=== PATIENT | male | born 1975 | race American Indian/Alaskan Native ===

== ENCOUNTER 2017-07-03 15:54 | Emergency (ER) | payer MEDICAID ==
[2017-07-03] MEDS ORDERED: TYLENOL PO ONE (19:56)
[2017-07-03] MEDS ORDERED: NORVASC PO ONE (20:09)
--- NOTE | 2017-07-03 20:18 | Emergency Department Report ---
- General Chief Complaint: Upper Respiratory Infection Stated Complaint: HEADACHE Time Seen by Provider: 07/03/17 20:08 Source: patient Mode of arrival: Ambulatory Limitations: No Limitations - History of Present Illness Initial Comments: 42-year-old male past medical history hypertension presents with complaint of nasal congestion sore throat intermittent headache and body aches for approximately 3-4 days. Patient awake alert and oriented 3 not in acute distress fully lucid nontoxic-appearing. Primarily complaining of sore throat and generalized malaise. Denies substernal chest pain palpitations or significant shortness of breath. Does state he has had cough. Unsure if he has had sick contacts. Patient ambulatory without assistance. Denies being a smoker. Patient is out of blood pressure medicines. MD Complaint: fever, cough, sore throat, rhinorrhea, nasal congestion, sinus pain Onset/Timin -: days(s) Severity: mild Associated Symptoms: myalgias, headache, rhinorrhea, nasal congestion, sore throat, cough - Related Data Previous Rx's Medication Instructions Recorded Last Taken Type Benzonatate [Tessalon Perles] 100 mg PO Q8HR PRN #30 capsule 06/02/17 Unknown Rx Ibuprofen [Motrin] 800 mg PO Q8HR PRN #30 tablet 06/02/17 Unknown Rx Ondansetron [Zofran Odt] 4 mg PO Q8HR PRN #14 tab.rapdis 06/02/17 Unknown Rx Sodium Chloride [Saline Nasal 1 - 2 sprays NS PRN PRN #1 bottle 06/02/17 Unknown Rx [place]] amLODIPine [Norvasc] 5 mg PO DAILY #30 tab 06/02/17 Unknown Rx traMADol [Ultram 50 MG tab] 50 mg PO Q6HR PRN #20 tablet 06/02/17 Unknown Rx Amoxicillin/Potassium Clav 1 each PO BID #14 tablet 07/04/17 Unknown Rx [Augmentin 875-125 Tablet] Dextromethorphan/Benzocaine 1 each PO Q4H PRN #1 box 07/04/17 Unknown Rx [Cepacol Sorethroat-Cough Ellen] Phenylephrine/Dm/Acetaminop/GG 10 ml PO Q6H PRN #1 liquid 07/04/17 Unknown Rx [Mucinex Fidx-Nvz-Ogqhtswbqt Lq] amLODIPine [Norvasc] 5 mg PO DAILY #30 tab 07/04/17 Unknown Rx methylPREDNISolone [Medrol Dose 4 mg PO QDAY #1 tab.ds.pk 07/04/17 Unknown Rx [place]] Allergies Allergy/AdvReac Type Severity Reaction Status Date / Time No Known Allergies Allergy Unverified 06/02/17 17:58 ED Review of Systems ROS: Stated complaint: HEADACHE Other details as noted in HPI Constitutional: malaise. denies: chills, fever Eyes: denies: eye pain, eye discharge, vision change ENT: throat pain. denies: ear pain Respiratory: cough. denies: shortness of breath, wheezing Cardiovascular: denies: chest pain, palpitations Endocrine: no symptoms reported Gastrointestinal: denies: abdominal pain, nausea, diarrhea Genitourinary: denies: urgency, dysuria Musculoskeletal: denies: back pain, joint swelling, arthralgia Skin: denies: rash, lesions Neurological: denies: headache, weakness, paresthesias Psychiatric: denies: anxiety, depression Hematological/Lymphatic: denies: easy bleeding, easy bruising ED Past Medical Hx - Past Medical History Previous Medical History?: Yes Hx Hypertension: Yes - Surgical History Past Surgical History?: No - Social History Smoking Status: Never Smoker Substance Use Type: Prescribed - Medications Home Medications: Home Medications Medication Instructions Recorded Confirmed Last Taken Type Benzonatate [Tessalon Perles] 100 mg PO Q8HR PRN #30 capsule 06/02/17 Unknown Rx Ibuprofen [Motrin] 800 mg PO Q8HR PRN #30 tablet 06/02/17 Unknown Rx Ondansetron [Zofran Odt] 4 mg PO Q8HR PRN #14 tab.rapdis 06/02/17 Unknown Rx Sodium Chloride [Saline Nasal 1 - 2 sprays NS PRN PRN #1 bottle 06/02/17 Unknown Rx [place]] amLODIPine [Norvasc] 5 mg PO DAILY #30 tab 06/02/17 Unknown Rx traMADol [Ultram 50 MG tab] 50 mg PO Q6HR PRN #20 tablet 06/02/17 Unknown Rx Amoxicillin/Potassium Clav 1 each PO BID #14 tablet 07/04/17 Unknown Rx [Augmentin 875-125 Tablet] Dextromethorphan/Benzocaine 1 each PO Q4H PRN #1 box 07/04/17 Unknown Rx [Cepacol Sorethroat-Cough Ellen] Phenylephrine/Dm/Acetaminop/GG 10 ml PO Q6H PRN #1 liquid 07/04/17 Unknown Rx [Mucinex Ichm-Mfp-Wdbuwcfxhv Lq] amLODIPine [Norvasc] 5 mg PO DAILY #30 tab 07/04/17 Unknown Rx methylPREDNISolone [Medrol Dose 4 mg PO QDAY #1 tab.ds.pk 07/04/17 Unknown Rx [place]] ED Physical Exam - General Limitations: No Limitations General appearance: alert, in no apparent distress - Head Head exam: Present: atraumatic, normocephalic - Eye Eye exam: Present: normal appearance, PERRL, EOMI - ENT ENT exam: Present: mucous membranes moist - Expanded ENT Exam Expanded Throat exam: Positive: other (some uvular erythema and exudates no STEREOTYPE CASTER uvula is midline oropharynx is patent.) - Neck Neck exam: Present: normal inspection, full ROM - Respiratory Respiratory exam: Present: normal lung sounds bilaterally (lungs clear to auscultation bilaterally). Absent: respiratory distress - Cardiovascular Cardiovascular Exam: Present: regular rate, normal rhythm. Absent: systolic murmur, diastolic murmur, rubs, gallop - GI/Abdominal GI/Abdominal exam: Present: soft (abdomen soft nontender nondistended no right or left flank tenderness on percussion), normal bowel sounds - Rectal Rectal exam: Present: deferred - Extremities Exam Extremities exam: Present: normal inspection - Back Exam Back exam: Present: normal inspection - Neurological Exam Neurological exam: Present: alert, oriented X3 - Psychiatric Psychiatric exam: Present: normal affect, normal mood - Skin Skin exam: Present: warm, dry, intact, normal color. Absent: rash ED Course Vital Signs 07/03/17 16:03 Temperature 98.6 F Pulse Rate 75 Respiratory 18 Rate Blood Pressure 157/109 O2 Sat by Pulse 98 Oximetry ED Medical Decision Making - Lab Data Result diagrams: 07/03/17 22:18 07/03/17 22:18 - Medical Decision Making A/P: Viral syndrome, uvulitis, URI, prescription refill 1-strep and flu swab is negative, chest x-ray negative. CBC unremarkable. BMP unremarkable only slightly elevated CK minimal. 2-throat lozenges when necessary, Mucinex when necessary, Medrol Dosepak, course of Augmentin [email or web address] 3-no audible wheezing or stridor. Patient tolerating by mouth food and fluid without difficulty. No trismus noted drooling no stridor on clinical exam. No clinical features of epiglottitis on clinical exam 4- case discussed with ED attending also examined the patient 5- I advised patient to remain well-hydrated and follow-up with his primary care doctor. Patient states he lives in [place] and will do so when he arrives there later this week. Speaking in full sentences without difficulty. Will give patient refill on amlodipine and I advised him to follow up with primary care doctor for management of chronic chronic hypertension Critical care attestation.: If time is entered above; I have spent that time in minutes in the direct care of this critically ill patient, excluding procedure time. ED Disposition Clinical Impression: Viral syndrome, Uvulitis Upper respiratory infection Qualifiers: URI type: unspecified URI Qualified Code(s): J06.9 - Acute upper respiratory infection, unspecified Disposition: DC- TO HOME OR SELFCARE Is pt being admited?: No Does the pt Need Aspirin: No Condition: Stable Instructions: Uvulitis (ED), Benzocaine/Menthol (By mouth), Viral Syndrome (ED) , Upper Respiratory Infection (ED) Prescriptions: amLODIPine [Norvasc] 5 mg PO DAILY #30 tab Amoxicillin/Potassium Clav [Augmentin 875-125 Tablet] 1 each PO BID #14 tablet Dextromethorphan/Benzocaine [Cepacol Sorethroat-Cough Ellen] 1 each PO Q4H PRN #1 box PRN Reason: Sore Throat methylPREDNISolone [Medrol Dose Pasha] 4 mg PO QDAY #1 tab.ds.pk Phenylephrine/Dm/Acetaminop/GG [Mucinex Pzpp-Yxw-Qbzchihdcc Lq] 10 ml PO Q6H PRN #1 liquid PRN Reason: Cough Referrals: [facility] [Outside] - 3-5 Days [facility] [Outside] - 3-5 Days Forms: Work/School Release Form(ED) Time of Disposition: 00:12
[2017-07-03] MEDS ORDERED: MOTRIN PO ONE (20:51)
[2017-07-03] MEDS ORDERED: DELTASONE PO ONE (20:53)
--- NOTE | 2017-07-03 21:37 | XRay Report ---
FINAL REPORT PROCEDURE: XR CHEST ROUTINE 2V TECHNIQUE: PA and lateral chest radiographs were obtained. CPT 95431 HISTORY: cough worsening COMPARISON: 06/02/2017 FINDINGS: Heart: Normal. Mediastinum/Vessels: Normal. Lungs/Pleural space: Normal. Bony thorax: No acute osseous abnormality. Other: IMPRESSION: Normal examination.
[2017-07-03 22:41] LABS: Basophils % (Auto) 0.6 % (0.0-1.8); Eosinophils % (Auto) 1.8 % (0.0-4.3); Hematocrit 41.4 % (35.5-45.6); Hemoglobin 13.7 gm/dl (11.8-15.2); Mean Corpuscular HGB Conc 33 % (32-34); Mean Corpuscular Hemoglobin 29 pg (28-32); Mean Corpuscular Volume 89 fl (84-94); Platelet Count 172 K/mm3 (140-440); Red Blood Count 4.67 M/mm3 (3.65-5.03); White Blood Count 6.7 K/mm3 (4.5-11.0)
[2017-07-03 23:06] LABS: Anion Gap 18 mmol/L; BUN/Creatinine Ratio 17; Blood Urea Nitrogen 10 mg/dL (9-20); Calcium 9.4 mg/dL (8.4-10.2); Carbon Dioxide 27 mmol/L (22-30); Creatine Kinase 272 units/L (55-170); Glucose 104 mg/dL (75-100); Sodium 140 mmol/L (137-145)
[2017-07-04 01:22] VITALS: BP 149/99
== END 2017-07-04 00:20 | disposition home or self-care (01) ==
LOC: ED 15:54
DX: K12.2 Cellulitis and abscess of mouth (principal); J06.9 Acute upper respiratory infection, unspecified; B34.9 Viral infection, unspecified; I10 Essential (primary) hypertension
CPT/HCPCS: 36415; 71020; 80048; 82550; 85025; 87116; 87400; 87430; 87491; 99284; J7512

== ENCOUNTER 2017-08-05 16:47 | Emergency (ER) | payer MEDICAID ==
[2017-08-05 17:40] VITALS: BP 127/85
--- NOTE | 2017-08-06 03:56 | Emergency Department Report ---
Minor Respiratory - HPI Chief Complaint: Upper Respiratory Infection Stated Complaint: FLU SYMPTOMS Time Seen by Provider: 08/06/17 02:48 Duration: 1 Day Severity: mild Minor Respiratory: Yes Rhinorrhea, Yes Able to Tolerate Fluids, Yes Cough, Yes Sick Contacts (seo manager at work), Yes Fever (fever at home, normal temp in ER), No Sore Throat, No Ear Pain, No Hemoptysis, No Chest Pain, No Shortness of Breath Other History: This is a 42 y.o. male presents with cough, fever, chills, body aches, nausea, and diarrhea for 1 day. 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 He woke up yesterday with symptoms of the flu and couldn't go into work. Taking OTC cold and flu medication with minimal improvement. ED Review of Systems ROS: Stated complaint: FLU SYMPTOMS Other details as noted in HPI Constitutional: see HPI, chills, fever. denies: diaphoresis, malaise, weakness Eyes: denies: eye pain, eye discharge, vision change ENT: congestion. denies: ear pain, throat pain, dental pain, hearing loss, epistaxis Respiratory: see HPI, cough. denies: orthopnea, shortness of breath, SOB with exertion, SOB at rest, stridor, wheezing Cardiovascular: denies: chest pain, palpitations Gastrointestinal: denies: abdominal pain, nausea, diarrhea Neurological: denies: headache, weakness, paresthesias ED Past Medical Hx - Past Medical History Hx Hypertension: Yes - Surgical History Past Surgical History?: No - Social History Smoking Status: Never Smoker Substance Use Type: None - Medications Home Medications: Home Medications Medication Instructions Recorded Confirmed Last Taken Type Benzonatate [Tessalon Perles] 100 mg PO Q8HR PRN #30 capsule 06/02/17 Unknown Rx Ibuprofen [Motrin] 800 mg PO Q8HR PRN #30 tablet 06/02/17 Unknown Rx Ondansetron [Zofran Odt] 4 mg PO Q8HR PRN #14 tab.rapdis 06/02/17 Unknown Rx Sodium Chloride [Saline Nasal 1 - 2 sprays NS PRN PRN #1 bottle 06/02/17 Unknown Rx [place]] amLODIPine [Norvasc] 5 mg PO DAILY #30 tab 06/02/17 Unknown Rx traMADol [Ultram 50 MG tab] 50 mg PO Q6HR PRN #20 tablet 06/02/17 Unknown Rx Amoxicillin/Potassium Clav 1 each PO BID #14 tablet 07/04/17 Unknown Rx [Augmentin 875-125 Tablet] Dextromethorphan/Benzocaine 1 each PO Q4H PRN #1 box 07/04/17 Unknown Rx [Cepacol Sorethroat-Cough Ellen] Phenylephrine/Dm/Acetaminop/GG 10 ml PO Q6H PRN #1 liquid 07/04/17 Unknown Rx [Mucinex Sqfn-Bfw-Maequchghp Lq] amLODIPine [Norvasc] 5 mg PO DAILY #30 tab 07/04/17 Unknown Rx methylPREDNISolone [Medrol Dose 4 mg PO QDAY #1 tab.ds.pk 07/04/17 Unknown Rx [place]] Benzonatate 200 mg PO TID PRN #30 capsule 08/06/17 Unknown Rx Fluticasone [Flonase] 1 spray NS QDAY #1 bottle 08/06/17 Unknown Rx Ondansetron [Zofran TAB] 4 mg PO Q8HR PRN #15 tablet 08/06/17 Unknown Rx Oseltamivir [Tamiflu] 75 mg PO BID 5 Days #10 cap 08/06/17 Unknown Rx Minor Respiratory Exam - Exam General: Vital signs noted. No distress. Alert and acting appropriately. HEENT: Yes Pharyngeal Erythema, Yes Moist Mucous Membranes, Yes Rhinorrhea ( clear discharge, turbinates swollen and red), No Pharyngeal Exudates, No Conjuctival Injection, No Frontal Tenderness, No Maxillary Tenderness Ear: Neither TM Bulge, Neither TM Erythema, Neither EAC Pain, Neither EAC Discharge Neck: Yes Supple, No Adenopathy Lungs: Yes Good Air Exchange, Yes Cough, No Wheezes, No Ronchi, No Stridor, No Labored Respirations, No Retractions, No Use of Accessory Muscles, No Other Abnormal Lung Sounds Heart: Yes Regular, No Murmur Abdomen: Yes Normal Bowel Sounds, No Tenderness, No Peritoneal Signs Skin: No Rash, No Edema Neurologic: Alert and oriented, no deficits. Musculoskeletal: Unremarkable. ED Course Vital Signs 08/05/17 17:36 Temperature 98.5 F Pulse Rate 66 Respiratory 16 Rate Blood Pressure 127/85 O2 Sat by Pulse 97 Oximetry ED Medical Decision Making - Medical Decision Making This is a 42 y.o. female presents with congestion, cough, body aches, fever, chills, nausea, and diarrhea for 1 day. 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 States she was coughing over him all day. When he woke up the next day he could barely get out of bed and temperature was 101.3. He started taking OTC cold and flu medication with minimal relief. Rapid influenza, negative Physical assessment cc Viral Syndrome, started on tamiflu, benzonate for cough, flonase for congestion , and zofran for nausea. Follow up with PCP. Critical care attestation.: If time is entered above; I have spent that time in minutes in the direct care of this critically ill patient, excluding procedure time. ED Disposition Clinical Impression: Viral syndrome URI (upper respiratory infection) Qualifiers: URI type: acute nasopharyngitis (common cold) Qualified Code(s): J00 - Acute nasopharyngitis [common cold] Disposition: TO HOME OR SELFCARE Is pt being admited?: No Does the pt Need Aspirin: No Condition: Stable Instructions: Viral Syndrome (ED), Acute Nausea and Vomiting (ED), Upper Respiratory Infection (ED) Additional Instructions: Wash hands frequently. The cough can last for 2-3 weeks. Use tylenol and ibuprofen should be taken with regular fluid intake. Follow up with primary care provider. Seek medical attention if fever, headache, wheezing, or chest symptoms worsen. If drowsy or confused in the short term or if cough last longer than 4 weeks. Prescriptions: Benzonatate 200 mg PO TID PRN #30 capsule PRN Reason: Cough Fluticasone [Flonase] 1 spray NS QDAY #1 bottle Ondansetron [Zofran TAB] 4 mg PO Q8HR PRN #15 tablet PRN Reason: Nausea Oseltamivir [Tamiflu] 75 mg PO BID 5 Days #10 cap Referrals: PRIMARY CARE, [Primary Care Provider] - 3-5 Days [facility] [Outside] - 3-5 Days [facility] [address] [facility] [Outside] - 3-5 Days Forms: Work/School Release Form(ED) Time of Disposition: 03:57 Print Language: ROMANIAN
== END 2017-08-06 04:16 | disposition home or self-care (01) ==
LOC: ED 16:47
DX: B34.9 Viral infection, unspecified (principal); J00 Acute nasopharyngitis [common cold]; I10 Essential (primary) hypertension
CPT/HCPCS: 87400; 99282

== ENCOUNTER 2022-02-27 07:41 | Emergency (ER) | payer SELFPAY ==
--- NOTE | 2022-02-27 08:52 | XRay Report ---
LEFT HAND 3 VIEWS INDICATION: hand injury. COMPARISON: None. IMPRESSION: No acute osseous abnormality or joint pathology is detected. There are multiple tiny rad io-opaque densities at the level of the fourth metacarpophalangeal joint on the frontal view which co uld represent tiny soft tissue foreign bodies. Please correlate with the image. Signer Name: Harlan Victoria Jr, MD Signed: 02/27/2022 8:47 AM Workstation Name: [id number]
[2022-02-27] MEDS ORDERED: HYDROcodone/ACETAMINOPHEN 5-325 MG TAB PO ONE (09:01)
[2022-02-27] MEDS ORDERED: IBUPROFEN 800 MG TAB PO ONE (09:01)
--- NOTE | 2022-02-27 09:02 | Emergency Department Report ---
ED Upper Extremity Inj HPI - General Chief Complaint: Extremity Injury, Upper Stated Complaint: LEFT HAND/ BROKEN FINGER Time Seen by Provider: 02/27/22 08:30 Source: patient Mode of arrival: Ambulatory Limitations: No Limitations - Related Data Previous Rx's Medication Instructions Recorded Last Taken Type Benzonatate [Tessalon Perles] 100 mg PO Q8HR PRN #30 capsule 06/02/17 Unknown Rx Ibuprofen [Motrin] 800 mg PO Q8HR PRN #30 tablet 06/02/17 Unknown Rx Ondansetron [Zofran Odt] 4 mg PO Q8HR PRN #14 tab.rapdis 06/02/17 Unknown Rx Sodium Chloride [Saline Nasal 1 - 2 sprays NS PRN PRN #1 bottle 06/02/17 Unknown Rx [place]] amLODIPine [Norvasc] 5 mg PO DAILY #30 tab 06/02/17 Unknown Rx traMADoL [Ultram 50 MG tab] 50 mg PO Q6HR PRN #20 tablet 06/02/17 Unknown Rx Amoxicillin/Potassium Clav 1 each PO BID #14 tablet 07/04/17 Unknown Rx [Augmentin 875-125 Tablet] Dextromethorphan/Benzocaine 1 each PO Q4H PRN #1 box 07/04/17 Unknown Rx [Cepacol Sorethroat-Cough Ellen] Phenylephrine/Dm/Acetaminop/GG 10 ml PO Q6H PRN #1 liquid 07/04/17 Unknown Rx [Mucinex Wplw-Fyo-Tcxgsssdgr Lq] amLODIPine 5 mg PO DAILY #30 tab 07/04/17 Unknown Rx methylPREDNISolone [Medrol Dose 4 mg PO QDAY #1 tab.ds.pk 07/04/17 Unknown Rx [place]] Benzonatate 200 mg PO TID PRN #30 capsule 08/06/17 Unknown Rx Fluticasone [Flonase] 1 spray NS QDAY #1 bottle 08/06/17 Unknown Rx Ondansetron [Zofran TAB] 4 mg PO Q8HR PRN #15 tablet 08/06/17 Unknown Rx Oseltamivir [Tamiflu] 75 mg PO BID 5 Days #10 cap 08/06/17 Unknown Rx traMADoL [Ultram] 50 mg PO Q6HR PRN #10 tablet 02/27/22 Unknown Rx Allergies Allergy/AdvReac Type Severity Reaction Status Date / Time No Known Allergies Allergy Unverified 06/02/17 17:58 ED Review of Systems ROS: Stated complaint: LEFT HAND/ BROKEN FINGER Other details as noted in HPI Comment: All other systems reviewed and negative ED Past Medical Hx - Past Medical History Previous Medical History?: No Hx Hypertension: No - Surgical History Past Surgical History?: No - Family History Family history: no significant - Social History Smoking Status: Never Smoker Substance Use Type: None - Medications Home Medications: Home Medications Medication Instructions Recorded Confirmed Last Taken Type Benzonatate [Tessalon Perles] 100 mg PO Q8HR PRN #30 capsule 06/02/17 Unknown Rx Ibuprofen [Motrin] 800 mg PO Q8HR PRN #30 tablet 06/02/17 Unknown Rx Ondansetron [Zofran Odt] 4 mg PO Q8HR PRN #14 tab.rapdis 06/02/17 Unknown Rx Sodium Chloride [Saline Nasal 1 - 2 sprays NS PRN PRN #1 bottle 06/02/17 U nknown Rx [place]] amLODIPine [Norvasc] 5 mg PO DAILY #30 tab 06/02/17 Unknown Rx traMADoL [Ultram 50 MG tab] 50 mg PO Q6HR PRN #20 tablet 06/02/17 Unknown Rx Amoxicillin/Potassium Clav 1 each PO BID #14 tablet 07/04/17 Unknown Rx [Augmentin 875-125 Tablet] Dextromethorphan/Benzocaine 1 each PO Q4H PRN #1 box 07/04/17 Unknown Rx [Cepacol Sorethroat-Cough Ellen] Phenylephrine/Dm/Acetaminop/GG 10 ml PO Q6H PRN #1 liquid 07/04/17 Unknown Rx [Mucinex Xftu-Xih-Udaotmpwjw Lq] amLODIPine 5 mg PO DAILY #30 tab 07/04/17 Unknown Rx methylPREDNISolone [Medrol Dose 4 mg PO QDAY #1 tab.ds.pk 07/04/17 Unknown Rx [place]] Benzonatate 200 mg PO TID PRN #30 capsule 08/06/17 Unknown Rx Fluticasone [Flonase] 1 spray NS QDAY #1 bottle 08/06/17 Unknown Rx Ondansetron [Zofran TAB] 4 mg PO Q8HR PRN #15 tablet 08/06/17 Unknown Rx Oseltamivir [Tamiflu] 75 mg PO BID 5 Days #10 cap 08/06/17 Unknown Rx traMADoL [Ultram] 50 mg PO Q6HR PRN #10 tablet 02/27/22 Unknown Rx ED Physical Exam - General Limitations: No Limitations General appearance: alert, in no apparent distress - Head Head exam: Present: atraumatic, normocephalic - Eye Eye exam: Present: normal appearance - ENT ENT exam: Present: mucous membranes moist - Neck Neck exam: Present: normal inspection - Respiratory Respiratory exam: Present: normal lung sounds bilaterally. Absent: respiratory distress - Cardiovascular Cardiovascular Exam: Present: regular rate, normal rhythm. Absent: systolic murmur, diastolic murmur, rubs, gallop - GI/Abdominal GI/Abdominal exam: Present: soft, normal bowel sounds - Rectal Rectal exam: Present: deferred - Extremities Exam Extremities exam: Present: normal inspection - Back Exam Back exam: Present: normal inspection - Neurological Exam Neurological exam: Present: alert, oriented X3 - Psychiatric Psychiatric exam: Present: normal affect, normal mood - Skin Skin exam: Present: warm, dry, intact, normal color. Absent: rash ED Course Vital Signs 02/27/22 08:25 Temperature 98.9 F Pulse Rate 50 L Respiratory 14 Rate O2 Sat by Pulse 98 Oximetry ED Medical Decision Making - Radiology Data Radiology results: report reviewed, image reviewed Critical care attestation.: If time is entered above; I have spent that time in minutes in the direct care of this critically ill patient, excluding procedure time. ED Disposition Clinical Impression: Contusion, hand Disposition: 01 HOME / SELF CARE / HOMELESS Is pt being admited?: No Does the pt Need Aspirin: No Condition: Stable Instructions: Contusion, [id number] Additional Instructions: REST/ICE/ELEVATE MOTRIN OR TYLENOL FOR MILD PAIN ULTRAM FOR SEVERE PAIN FOLLOW UP WITH ORTHO MD IF PAIN PERSISTS REFERRAL BELOW XRAY- NO FRACTURE Referrals: MEAGAN PENA MD [Staff Physician] - 3-5 Days Forms: Work/School Release Form(ED) Time of Disposition: 09:37
== END 2022-02-27 10:01 | disposition home or self-care (01) ==
LOC: ED 07:41
DX: S60.222A Contusion of left hand, initial encounter (principal); X58.XXXA Exposure to other specified factors, initial encounter; Y93.89 Activity, other specified; Y92.89 Other specified places as the place of occurrence of the external cause; Y99.8 Other external cause status
CPT/HCPCS: 99283